=== PATIENT | female | born 1975 | race African-American/Black ===

== ENCOUNTER 2022-08-30 18:17 | Observation (INO) ==
[2022-08-30 18:54] LABS: Basophils # 0.1 10*3/uL (0.0-0.2); Basophils % 0.5 % (0.0-0.8); Eosinophils # 0.1 10*3/uL (0.0-0.87); Eosinophils % 1.1 % (0.00-10.9); Hemoglobin 12.9 GM/DL (12.0-16.0); Immature Granulocytes % 0.4 %; Immature Granulocytes Absolute 0.04 #; Lymphocytes # 3.3 10*3/uL (1.4-4.0); Lymphocytes % 33.3 % (21.3-54.2); Mean Corpuscular HGB Conc 33.1 GM/DL (32-36); Mean Corpuscular Volume 83.3 FL (87-102); Mean Platelet Volume 10.4 FL (9.6-12.0); Monocytes # 0.8 10*3/uL (0.11-0.8); Neutrophils % 56.7 % (38.7-73.9); Platelet Count 301 T/CUMM (130-400); Red Blood Count 4.68 MC/CUMM (3.8-5.5); Red Cell Distribution Width 15.2 % (9.3-17.3); White Blood Count 9.76 T/CUMM (4-12)
[2022-08-30 19:14] LABS: Bilirubin,Total 0.8 MG/DL (0.20-1.00); Calcium 9.1 MG/DL (8.5-10.1); Osmolality,Calculated 284.8 MOS/KG (273-304); Potassium 3.5 MMOL/L (3.5-5.1); Total Protein 7.9 G/DL (6.4-8.2)
[2022-08-30] MEDS ORDERED: ENOXAPARIN 100 MG/ML SYRINGE SUBCUT STA (19:30)
[2022-08-30] MEDS ORDERED: NITROGLYCERIN 2% OINT 1 INCH/GM PACK TOP STA (19:30)
[2022-08-30] MEDS ORDERED: ASPIRIN 325 MG TABLET PO STA (19:30)
[2022-08-30] MEDS ORDERED: MORPHINE 2 MG/1 ML SYRINGE IV STA (19:30)
[2022-08-30] MEDS ORDERED: ONDANSETRON 4 MG/2 ML VIAL IV STA (19:30)
[2022-08-30] MEDS ORDERED: hydrALAZINE 20 MG/1 ML VIAL IV PRN (19:39)
[2022-08-30] MEDS ORDERED: MORPHINE 2 MG/1 ML SYRINGE IV PRN (19:39)
[2022-08-30] MEDS ORDERED: ACETAMINOPHEN 325 MG TABLET PO PRN (19:39)
[2022-08-30] MEDS ORDERED: SIMETHICONE CHEW 125 MG TABLET PO PRN (19:39)
[2022-08-30] MEDS ORDERED: ONDANSETRON 4 MG/2 ML VIAL IV PRN (19:39)
[2022-08-30] MEDS: DOCUSATE SODIUM 100 MG CAPSULE PO SCH (23:35)
[2022-08-30] MEDS: VALSARTAN 80 MG TABLET PO SCH (23:35)
[2022-08-31 04:50] LABS: Basophils # 0.1 10*3/uL (0.0-0.2); Basophils % 0.7 % (0.0-0.8); Eosinophils # 0.1 10*3/uL (0.0-0.87); Eosinophils % 1.6 % (0.00-10.9); Hemoglobin 11.3 GM/DL (12.0-16.0); Immature Granulocytes % 0.3 %; Immature Granulocytes Absolute 0.02 #; Lymphocytes # 2.4 10*3/uL (1.4-4.0); Lymphocytes % 35.2 % (21.3-54.2); Mean Corpuscular HGB Conc 32.3 GM/DL (32-36); Mean Corpuscular Volume 84.3 FL (87-102); Mean Platelet Volume 11.4 FL (9.6-12.0); Monocytes # 0.6 10*3/uL (0.11-0.8); Monocytes % 8.2 % (1.7-12.7); Platelet Count 259 T/CUMM (130-400); Red Blood Count 4.15 MC/CUMM (3.8-5.5); Red Cell Distribution Width 15.3 % (9.3-17.3); White Blood Count 6.82 T/CUMM (4-12)
[2022-08-31 05:15] LABS: Calcium 8.6 MG/DL (8.5-10.1); Potassium 3.4 MMOL/L (3.5-5.1); Risk Ratio 3.14; Thyroid Stimulating Hormone 1.54 uIU/ml (0.358-3.74); VLDL Cholesterol 8.4 MG/DL
[2022-08-31 06:36] LABS: Barbiturates Screen,Urine Negative (Negative); Benzodiazepines Screen,Urine Negative (Negative); Cannabinoid Screen,Urine Negative (Negative); Opiate Screen,Urine Positive (Negative); Phencyclidine Screen,Urine Negative (Negative)
[2022-08-31] MEDS ORDERED: POTASSIUM CHLORIDE 20 MEQ TABLET PO ONE (07:12)
[2022-08-31] MEDS: VALSARTAN 80 MG TABLET PO SCH (08:57)
[2022-08-31] MEDS: DOCUSATE SODIUM 100 MG CAPSULE PO SCH (08:57)
[2022-08-31] MEDS ORDERED: PANTOPRAZOLE 40 MG TABLET PO SCH (09:00)
[2022-08-31] MEDS ORDERED: ASPIRIN EC 325 MG TABLET PO SCH (09:00)
[2022-08-31 12:31] VITALS: BP 132/69
[2022-08-31] MEDS ORDERED: ENOXAPARIN 40 MG/0.4 ML SYRINGE SUBCUT SCH (20:00)
[2022-09-01] MEDS ORDERED: ASPIRIN EC 81 MG TABLET PO SCH (09:00)
== END 2022-08-31 13:52 | disposition home or self-care (01) ==
LOC: N.EDINP 18:17 → N.ED 18:17 → N.2W 08-31 00:37
PROVIDERS: ADMIT Internal Medicine; ATTEND Internal Medicine